=== PATIENT | female | born 1950 | race Caucasian/White ===

== ENCOUNTER 2016-12-21 13:02 | Emergency (ER) | payer OTHER ==
[2016-12-21 13:36] VITALS: BMI 31.9
--- NOTE | 2016-12-21 15:23 | PDOC ---
History of Present Illness - General Chief Complaint: Pain Stated Complaint: BACK PAIN Time Seen by Provider: 12/21/16 14:13 History Source: Patient Exam Limitations: No Limitations - History of Present Illness Initial Comments: This is a 66 yof with h/o chronic back pain, lumbar fusion (chronic residual mild RLE weakness), and hysterectomy who p/w sharp diffuse midline lumbar back pain radiating to both flanks for the past 2-3 days. The pain fluctuates and yesterday was up to 10/10 whenever she twisted her body or moved. She took Celebrex for this last night and this morning with significant relief. She has had pain like this before once which prompted an ED visit as well, but she cannot remember the cause of it. She additionally notes mild lower abdominal discomfort, but no other new symptoms. She struggles with some degree of urinary incontinence chronically and this has not changed recently. She denies fever, chills, nausea, vomiting, diarrhea, constipation, new numbness, tingling , new weakness, urinary retention or new incontinence, bowel incontinence, balance or walking difficulties, vision changes, speech or swallowing difficulties, or other symptoms. Past History - Past Medical History Allergies/Adverse Reactions: Allergies Allergy/AdvReac Type Severity Reaction Status Date / Time No Known Allergies Allergy Verified 12/21/16 13:36 Home Medications: Ambulatory Orders NK [No Known Home Medication] 12/21/16 HTN: Yes Hypercholesterolemia: Yes - Suicide/Smoking/Psychosocial Hx Smoking History: Never smoked Information on smoking cessation initiated: No Hx Alcohol Use: No Drug/Substance Use Hx: No Substance Use Type: None Review of Systems - Review of Systems Constitutional: No: Chills, Fever, Unexplained wgt Loss HEENTM: No: Nose Congestion, Throat Pain Respiratory: No: Cough, Shortness of Breath Cardiac (ROS): No: Chest Pain, Palpitations ABD/GI: Yes: Other (abdominal discomfort (chronic)). No: Constipated, Diarrhea , Nausea, Vomiting : Yes: Incontinence (mild chronic urinary incontinence). No: Burning, Dysuria Musculoskeletal: Yes: Back Pain ([id number]), Muscle Weakness (chronic right leg weakness). No: Neck Pain Integumentary: No: Bruising, Rash Neurological: No: Headache, Numbness, Paresthesia, Tingling, Weakness, Dizziness Endocrine: No: Unexplained Weight Gain, Unexplained Weight Loss *Physical Exam - Vital Signs Last Vital Signs Temp Pulse Resp BP Pulse Ox 97.8 F 68 18 151/87 96 12/21/16 13:29 12/21/16 13:29 12/21/16 13:29 12/21/16 13:12/21/16 13:29 - Physical Exam General Appearance: Yes: Nourished, Appropriately Dressed, Other (conversive, ) . No: Apparent Distress HEENT: positive: EOMI, Normal Voice, Hearing Grossly Normal. negative: Scleral Icterus (R), Scleral Icterus (L), Nasal Congestion Neck: positive: Trachea midline, Supple. negative: Tender, Rigid Respiratory/Chest: positive: Lungs Clear, Normal Breath Sounds. negative: Respiratory Distress, Crackles, Rhonchi, Stridor, Wheezing Cardiovascular: positive: Regular Rhythm, Regular Rate. negative: Murmur Gastrointestinal/Abdominal: positive: Normal Bowel Sounds, Soft. negative: Tender, Organomegaly, Pulsatile Mass, Guarding Musculoskeletal: positive: Normal Inspection. negative: Decreased Range of Motion, Vertebral Tenderness Extremity: positive: Normal Capillary Refill, Normal Inspection, Normal Range of Motion. negative: Tender, Cyanosis Integumentary: positive: Normal Color, Dry, Warm. negative: Erythema, Rash, Bruising Neurologic: positive: continuous improvement specialist II-XII NML intact, Fully Oriented, Alert, Normal Mood/ Affect, Normal Response, Motor Strength 5/5 ED Treatment Course - LABORATORY CBC & Chemistry Diagram: 12/21/16 15:30 12/21/16 15:30 Medical Decision Making - Medical Decision Making 66 yof with h/o chronic back pain p/w bilateral flank and spine pain in lower back. Exam with VS wnl, midline diffuse lumbar tenderness, minimal suprapubic tenderness. DDX includes UTI/pyelonephritis, vertebral fxr or disc herniation, renal stone, muscle strain/sprain. Unlikely cauda equina or cord compression, spinal stenosis, mass, or other more serious pathology. Patient has chronic unchanged right leg weakness and chronic mild urinary incontinence which sounds like stress incontinence. Ordered is Motrin, UA with cx, L-spine xray, and spiral CT. UA negative. Pt's pain improves with Motrin. *DC/Admit/Observation/Transfer Diagnosis at time of Disposition: Back pain Qualifiers: Back pain location: low back pain Chronicity: unspecified Back pain laterality : unspecified Sciatica presence: without sciatica Qualified Code(s): M54.5 - Low back pain - Discharge Dispostion Admit: No - Referrals Referrals: Buzz Rashid MD [Primary Care Provider] - Savannah Juan MD [Staff Physician] - Mark Dudley MD [Staff Physician] - - Patient Instructions Printed Discharge Instructions: DI for Low Back Pain Additional Instructions: You were seen in the ER today for back pain and flank pain. We did urine tests which were normal. We also took an x-ray of your lumbar spine and this did not show any concerning findings that could have caused your pain. We also did a CT scan of your abdomen and did not see any concerning findings that may have caused your symptoms. Please follow up with your primary doctor for continued workup, especially if your back pain persists. Please also follow up with your senior security architect or urologist regarding your incontinence and chronic discomfort in your pelvis. Please continue to take your normal Celebrex or which ever OTC pain medication you prefer for your pain. Return to the ED with any new or worsening symptoms such as new numbness, tingling, weakness, worsened pain or loss of continence, fever, or other symptoms. Print Language: LITHUANIAN
[2016-12-21 15:37] LABS: BASOPHIL 1.2 % (0-2.0); EOSINOPHIL 3.1 % (0-4.5); MCH 31.1 pg (25.7-33.7); MCHC 32.9 g/dl (32.0-36.0); MEAN CELL VOLUME 94.4 fl (80-96); MEAN PLT VOLUME 10.1 fl (7.5-11.1); PLATELET COUNT 232 K/MM3 (134-434); RDW 13.5 % (11.6-15.6); URINE APPEARANCE SL CLOUDY; URINE BILIRUBIN NEGATIVE (NEGATIVE); URINE BLOOD TRACE-LYSE (NEGATIVE); URINE COLOR LT. YELLOW; URINE GLUCOSE (UA) NEGATIVE (NEGATIVE); URINE KETONE NEGATIVE (NEGATIVE); URINE NITRITE NEGATIVE (NEGATIVE); URINE PROTEIN NEGATIVE (NEGATIVE); URINE UROBILINOGEN 0.2 mg/dL (0.2-1.0); WHITE BLOOD COUNT 7.1 K/mm3 (4.0-10.0)
[2016-12-21 15:39] LABS: URINE LEUK ESTERASE 3+ (NEGATIVE)
[2016-12-21] MEDS ORDERED: IBUPROFEN 600 MG TABLET (FP) PO ONE ×2 (15:42→16:01)
[2016-12-21 15:46] LABS: URINE BACTERIA FEW /hpf (NONE SEEN); URINE MUCUS RARE; URINE RBC 2 /hpf (0-3); URINE WBC 175 /hpf (3-5)
[2016-12-21 16:03] LABS: ALK PHOS 71 U/L (45-117); ANION GAP 7 (8-16); BILIRUBIN,TOTAL 0.7 mg/dL (0.2-1.0); CO2 29 mmol/L (21-32); CREATININE 0.6 mg/dL (0.55-1.02); GLUCOSE,RANDOM 80 mg/dL (74-106); SGOT/AST 11 U/L (15-37); SGPT/ALT 22 U/L (12-78); TOT PROT 6.8 g/dl (6.4-8.2)
--- NOTE | 2016-12-21 17:02 | PDOC ---
Attending Attestation - Resident Resident Name: Lindsay - ED Attending Attestation I have performed the following: I have examined & evaluated the patient, The case was reviewed & discussed with the resident, I agree w/resident's findings & plan, Exceptions are as noted - HPI HPI: 12/21/16 16:57 66 yo F with h/o prior spinal fusion 1995, prior hysterectomy and subsequent prolapse , here today c/o bilat lower abd pain. describe pulling sensation. has had for over one month. also now having low back pain. radiates around to front. no dysuria. although does have urgency and prolapse, with occasional incontinence which she has had for 6 months. was referred to Dr Molina ( ug designer) but was unable to get an appointment before her recent travels to [facility] for one month. no f/c no n/v . no weight loss. no other complaints. has some chronic right leg weakness following her spinal fusion in but no worse or new weakness. - Physicial Exam PE: 12/21/16 16:59 awake alert lungs clear. heart rrr no mrg. abd soft mild bilat lower quad ttp, bladder ttp. no cva tenderness. no mildline spinal tenderess. parapspinal spasm. 5/5 bilat lower ext, mild weaknes hip flex right compared to left ( old) sensation intact to light tough throughout. n/v intact. - Medical Decision Making 12/21/16 17:00 differential: renal colic, uti pyelo, msk strain sprain, bony lesion. plan xray spin lumbar, eval hardward, ua labs ct a/p without. pt will likley require outpt followup with Dr Prasad ( ug designer) and her pcp Dr Leyva, and spinal surgery. treat with nsaids for pain control.
[2016-12-21 18:23] VITALS: BP 140/80; PULSE 87; TEMP 98.2
--- NOTE | 2016-12-21 18:23 | PDOC ---
*Physical Exam - Vital Signs Last Vital Signs Temp Pulse Resp BP Pulse Ox 97.8 F 68 18 151/87 96 12/21/16 13:29 12/21/16 13:29 12/21/16 13:29 12/21/16 13:29 12/21/16 13:29 - Physical Exam Comments: 12/21/16 18:21 abd: soft, nt/nd ED Treatment Course - LABORATORY CBC & Chemistry Diagram: 12/21/16 15:30 12/21/16 15:30 - ADDITIONAL ORDERS Additional order review: Laboratory Results 12/21/16 12/21/16 15:30 15:30 Sodium 138 Potassium 4.7 Chloride 102 Carbon Dioxide 29 Anion Gap 7 L BUN 11 D Creatinine 0.6 Creat Clearance w eGFR > 60 Random Glucose 80 Calcium 9.0 Total Bilirubin 0.7 AST 11 L D ALT 22 Alkaline Phosphatase 71 Total Protein 6.8 Albumin 4.0 Urine Color Lt. yellow Urine Appearance Sl cloudy Urine pH 6.0 Urine Protein Negative Urine Glucose (UA) Negative Urine Ketones Negative Urine Blood Trace-lyse Urine Nitrite Negative Urine Bilirubin Negative Urine Urobilinogen 0.2 Urine RBC 2 Urine WBC 175 Ur Epithelial Cells Rare Urine Bacteria Few Urine Mucus Rare 12/21/16 15:30 RBC 4.35 MCV 94.4 MCHC 32.9 RDW 13.5 MPV 10.1 D Neutrophils % 48.0 Lymphocytes % 36.7 Monocytes % 11.0 H Eosinophils % 3.1 Basophils % 1.2 - Medications Given in the ED: ED Medications Discontinued Medications Generic Name Dose Route Start Last Admin Trade Name Freq PRN Reason Stop Dose Admin Ibuprofen 600 mg 12/21/16 15:42 12/21/16 15:58 Motrin - PO 12/21/16 15:43 600 mg ONCE ONE Administration Medical Decision Making - Medical Decision Making 12/21/16 18:22 ct reviewed with the patient. lab work reviewed with the patient. Pt stable for d/c to home. States she needs both ortho and international bank manager recommendations. Will call [facility] for follow up. *DC/Admit/Observation/Transfer Diagnosis at time of Disposition: Back pain Qualifiers: Back pain location: low back pain Chronicity: unspecified Back pain laterality : unspecified Sciatica presence: without sciatica Qualified Code(s): M54.5 - Low back pain - Referrals Referrals: Buzz Rashid MD [Primary Care Provider] - - Patient Instructions Printed Discharge Instructions: DI for Low Back Pain Additional Instructions: You were seen in the ER today for back pain and flank pain. We did urine tests which were normal. We also took an x-ray of your lumbar spine and this did not show any concerning findings that could have caused your pain. We also did a CT scan of your abdomen and did not see any concerning findings that may have caused your symptoms. Please follow up with your primary doctor for continued workup, especially if your back pain persists. Please also follow up with your agricultural chemicals inspector or urologist regarding your incontinence and chronic discomfort in your pelvis. Please continue to take your normal Celebrex or which ever OTC pain medication you prefer for your pain. Return to the ED with any new or worsening symptoms such as new numbness, tingling, weakness, worsened pain or loss of continence, fever, or other symptoms. Print Language: SOUTH SUDANESE - Post Discharge Activity
== END 2016-12-21 18:39 | disposition home or self-care (01) ==
LOC: JER 13:02
DX: M54.5 Low back pain (principal); G89.29 Other chronic pain; I10 Essential (primary) hypertension; E78.00 Pure hypercholesterolemia, unspecified
CPT/HCPCS: 36415; 72100-TC; 74176; 80053; 81003; 81015; 85025; 87086; 87186; 99283-25

== ENCOUNTER 2019-12-26 11:29 | Emergency (ER) | payer OTHER ==
[2019-12-26 11:45] VITALS: BP 153/95; PULSE 70; TEMP 98.2; BMI 34.0
--- OUTSIDE RECORDS SUMMARY | 2019-12-26 11:56 | XMS ---
:1950 Author Organization [facility] Support Name Relationship Address Phone UE, UNEMPLOYED Unavailable Unavailable Unavailable UE Unavailable Unavailable Unavailable MISTY ALLEN [address] [place] [address] Re-disclosure Warning The records that you are about to access may contain information from federally- assisted alcohol or drug abuse programs. If such information is present, then the following federally mandated warning applies: This information has been disclosed to you from records protected by federal confidentiality rules (42 CFR part 2). The federal rules prohibit you from making any further disclosure of this information unless further disclosure is expressly permitted by the written consent of the person to whom it pertains or as otherwise permitted by 42 CFR part 2. A general authorization for the release of medical or other information is NOT sufficient for this purpose. The Federal rules restrict any use of the information to criminally investigate or prosecute any alcohol or drug abuse patient.The records that you are about to access may contain highly sensitive health information, the redisclosure of which is protected by Article 27-F of the [facility] Public Health law. If you continue you may haveaccess to information: Regarding HIV / AIDS; Provided by facilities licensed or operated by the [facility] Office of Mental Health; or Provided by the [facility] Office for People With Developmental Disabilities. If such information is present, then the following [facility] mandated warning applies: This information has been disclosed to you from confidential records which are protected by state law. State law prohibits you from making any further disclosure of this information without the specific written consent of the person to whom it pertains, or as otherwise permitted by law. Any unauthorized further disclosure in violation of state law may result in a fine or assisted sentence or both. A general authorization for the release of medical or other information is NOT sufficient authorization for further disclosure. Insurance Providers Payer name Policy type Policy ID Covered Covered libertarian's Policy P flora / Coverage libertarian ID relationship to Fay Inf ormation type fay [employer] MEDICARE [id number] SP [id number] ANOKA [id number] HEALTHCARE (MEDICARE) Results ID Date Data Source [id number] 11/11/2019 01:40:00 PM EDT [facility] Name Value Range Interpretation Description Data Sup porting Code Source(s) Document(s ) 2019 Novel [facility] Coronavirus RNA Interpretation Unspecified Specimen Qualitative KESHAWN Probe Detection This lab was ordered by [facility] and reported by [facility]. ID Date Data Source [id number] 11/11/2019 09:29:00 AM EDT [facility] Name Value Range Interpretation Description Data Sup porting Code Source(s) Document(s ) SARS [facility] Coronavirus 2 RNA Presence Respiratory Specimen KESHAWN Probe Detection This lab was ordered by [facility] and rep orted by [facility]. ID Date Data Source [id number] 10/07/2019 04:18:00 AM EDT [facility] Name Value Range Interpretation Code Description Data Jana rce(s) Supporting Document(s ) SARS-CoV-2 [facility] BY PCR This lab was ordered by [facility] and reported by [facility]. Procedure
--- NOTE | 2019-12-26 12:05 | PDOC ---
History of Present Illness <Michaelle Tapia - Last Filed: 12/26/19 19:07> - History of Present Illness Initial Comments: 12/26/19 12:27 69F with PMH of HTN, chronic back pain, and lumbar fusion presents to the ED after a mechanical fall on her stairs morning, she was worried about a fracture and wanted reassurance. She reports "missing a step" and fell on to her back and hit her head, and unsure of LOC. She was able to ambulate afterwards. She reports some nausea w/o vomiting. Denies lightheadedness/dizziness, headache, vision changes, numbness, tingling, weakness, urinary retention/incontinence. PMH: as in HPI SH: hysterectomy, lumbar fusion Allergies: NKDA Tob/Etoh/Rec drugs: neg x3 ROS GENERAL/CONSTITUTIONAL: No fever or chills. No weakness. HEENT: No change in vision. No ear pain or discharge. CARDIOVASCULAR: No chest pain or shortness of breath RESPIRATORY: No cough, wheezing, or hemoptysis. GASTROINTESTINAL: No nausea, vomiting, diarrhea or constipation. GENITOURINARY: No dysuria, frequency, or change in urination. MUSCULOSKELETAL: No joint or muscle swelling or pain. No neck or back pain. SKIN: No rash NEUROLOGIC: No headache, vertigo, or change in strength/sensation. ENDOCRINE: No increased thirst. No abnormal weight change HEMATOLOGIC/LYMPHATIC: No anemia, easy bleeding, or history of blood clots. ALLERGIC/IMMUNOLOGIC: No hives or skin allergy. PE GENERAL: Awake, alert, and fully oriented; no acute distress HEAD: No signs of trauma, normocephalic, atraumatic EYES: PERRLA, EOMI, sclera anicteric, conjunctiva clear ENT: Auricles normal inspection, hearing grossly normal, nares patent, moist mucosa, oropharynx clear without exudates. NECK: Normal ROM, supple, no LAD, JVD, or masses HEART: Regular rate and rhythm, normal S1/S2, no murmurs, rubs or gallops, peripheral pulses normal and equal bilaterally. LUNGS: No distress, speaks full sentences, clear to auscultation bilaterally ABDOMEN: Soft, nontender. No guarding, no rebound. No masses MSK: mild lumbar tenderness to palpation, mild tenderness at left greater tro chanter and mid left buttock, no tenderness or swelling at any other joint NEUROLOGICAL: CNII-XII grossly intact. Normal speech, no focal sensorimotor deficits SKIN: Warm, Dry, normal turgor, no rashes or lesions noted Assessment and Plan 1. eval for intracranial pathology, c-spine, l-spine and hip fracture Isidro Arthur, PGY1 Emergency Medicine <Isidro Arthur - Last Filed: 12/26/19 20:08> - General Chief Complaint: Nausea Stated Complaint: BACK PAIN Past History <Michaelle Tapia - Last Filed: 12/26/19 19:07> - Medical History COPD: No HTN: Yes Hypercholesterolemia: Yes - Psycho-Social/Smoking History Smoking History: Never smoked - Substance Abuse Hx (Audit-C & DAST Scrn) How often the patient has a drink containing alcohol: Never Score: In Men: 4 or > Positive; In Women: 3 or > Positive: 0 Screen Result (Pos requires Nsg. Audit-10AR): Negative In the last yr the pt used illegal drug/Rx for NonMed reason: No Score: Yes response is considered Positive: 0 Screen Result (Positive result requires Nsg. DAST-10): Negative <Isidro Arthur - Last Filed: 12/26/19 20:08> - Medical History Allergies/Adverse Reactions: Allergies Allergy/AdvReac Type Severity Reaction Status Date / Time No Known Allergies Allergy Verified 12/26/19 11:37 Home Medications: Ambulatory Orders Cephalexin [Keflex] 500 mg PO BID #14 capsule 12/25/16 *Physical Exam - Vital Signs Last Vital Signs Temp Pulse Resp BP Pulse Ox 98.2 F 70 16 153/95 100 12/26/19 11:37 12/26/19 11:37 12/26/19 11:37 12/26/19 11:37 12/26/19 11:37 <Michaelle aTpia - Last Filed: 12/26/19 19:07> - Vital Signs Last Vital Signs Temp Pulse Resp BP Pulse Ox 98.2 F 70 16 153/95 100 12/26/19 11:37 12/26/19 11:37 12/26/19 11:37 12/26/19 11:37 12/26/19 11:37 <Isidro Arthur - Last Filed: 12/26/19 20:08> Medical Decision Making - Medical Decision Making 12/26/19 12:51 69F with chronic back pain presents to ED after mechanical fall on . Physical exam was unimpressive. Will get head/c-spine CT, L-spine, and left hip/pelvis to eval for fracture. Pt took 2 advil today, will defer analgesics for now. 12/26/19 14:34 Head and c-spine CT are negative. Hip/pelvis xray negative. Lumbar spine xray - radiologist noted L1 compression, but did not specify if it appeared to be acute compression or chronic degenerative compression -> lumbar CT to further evaluate -> acute L1 compression fracture noted on lumbar CT scan Pt's pain well controlled, stable for d/c and advised to follow up with PCP and spine surgeon. <Isidro Arthur - Last Filed: 12/26/19 20:08> Discharge - Discharge Information Problems reviewed: Yes - Admission No <Michaelle Tapia - Last Filed: 12/26/19 19:07> - Admission No <Isidro Arthur - Last Filed: 12/26/19 20:08> - Discharge Information Clinical Impression/Diagnosis: Back pain Qualifiers: Back pain location: low back pain Chronicity: chronic Back pain laterality: bilateral Sciatica presence: unspecified whether sciatica present Qualified Code(s): M54.5 - Low back pain Lumbar vertebral fracture Qualifiers: Encounter type: initial encounter Lumbar vertebra fracture level: L1 Fracture type: closed Fracture morphology: wedge compression Qualified Code(s): S32.010A - Wedge compression fracture of first lumbar vertebra, initial encounter for closed fracture Condition: Stable Disposition: HOME - Follow up/Referral Referrals: Luis Armando Zepeda MD [Staff Physician] - German Veloz MD [Staff Physician] - Jose Espinoza DO [Staff Physician] - - Patient Discharge Instructions Additional Instructions: Discharge Instructions: You were seen in the emergency department for back pain after a fall. Your CT scan of your lower back (lumbar spine) showed a compression fracture. This is safe to go home with, but you will need to follow up with orthopedic surgery. Home Care and Follow Up: - You may use over the counter medications as needed for pain at home. 650- 1000mg acetaminophen (Tylenol) or 600mg ibuprofen (Motrin or Advil) can be used every 6-8 hours. If needed for continued pain, these medications may be alternated every 3-4 hours. For example, if you take ibuprofen at 9am, you may take acetaminophen at noon, ibuprofen at 3pm, etc. - It is strongly recommended that you take ibuprofen with food to help prevent stomach irritation. If you are taking it for more than a day or two, you may consider taking an acid medication such as Pepcid, available over the counter, to protect your stomach. This should be taken first thing in the morning 30-60 minutes before any food or medications. - You may buy a numbing patch that contains lidocaine (the patch is 4% lidocaine) that can be placed over the areas of greatest pain. The lidocaine patch may be placed for 12 hours then removed for 12 hours. - Try using an ice pack for 20 minutes every hour or a heating pad for additional pain control. These should NOT be used over the lidocaine patch, but you may place them over the areas of pain while the patch is off. - Do not stop moving around, but avoid activities that cause pain in your back. - You will need to follow up with an orthopedic surgeon within the next 7 days. You have been given contact information for several orthopedic surgeons (Dr Veloz, Dr Zepeda, and Dr Espinoza). There is more than one doctor available at each number, so you should be able to get an appointment within the next week. - Seek immediate medical care if you have significant worsening of your symptoms, weakness in your legs, urinary or stool incontinence, difficulty walking, numbness in your buttocks, any additional falls, pain that is not controlled with medication, or any other medical emergency. - Post Discharge Activity
--- NOTE | 2019-12-26 13:57 | PDOC ---
Documentation entered by Cesar Graves SCRIBE, acting as scribe for German Chacon MD. German Chacon MD: This documentation has been prepared by the Star stahl Aaron, SCRIBE, under my direction and personally reviewed by me in its entirety. I confirm that the documentation accurately reflects all work, treatment, procedures, and medical decision making performed by me. Attending Attestation - Resident Resident Name: Isidro Arthur - ED Attending Attestation I have performed the following: I have examined & evaluated the patient, The case was reviewed & discussed with the resident, I agree w/resident's findings & plan, Exceptions are as noted - HPI HPI: 12/26/19 12:38 The patient is a 69 year old female with a significant PMH of chronic back pain, HTN, HLD, who presents to the emergency department s/p fall 2 days ago. Patient reports that she slipped down the stairs, hitting her back and the back of her head. Denies LOC. Was able to get up afterwards and has been walking around without issue since then. However, pt reports pain in her lower back and head. Patient took tylenol for pain and endorses nausea without vomiting and states her head feels funny. Patient denies lightheadedness, dizziness, vision changes, headache, numbness, or tingling. Allergies: NKDA Past surgical history: Lumbar fusion, hysterectomy Social Hx: non-smoker PCP: Buzz Rashid - Physicial Exam PE: 12/26/19 14:00 See resident exam - Medical Decision Making 12/26/19 14:00 69 F with mechanical fall 2 days ago, now with head and lower back pain. - CT head/c-spine - XR L spine CT L spine shows compression fx Pt with no neuro deficits, pain well controlled will DC with outpt spine f/u Pt is well appearing, with normal vitals. Clinically stable for DC at this time. I discussed the physical exam findings, ancillary test results and final diagnoses with the patient. I answered all of the patient's questions. The patient was satisfied with the care received and felt comfortable with the discharge plan and treatment plan. The patient agrees to follow up with the primary care physician within 24-72 hours. Discharge - Discharge Information Problems reviewed: Yes Clinical Impression/Diagnosis: Fall Back pain Qualifiers: Back pain location: low back pain Chronicity: chronic Back pain laterality: bilateral Sciatica presence: unspecified whether sciatica present Qualified Code(s): M54.5 - Low back pain Lumbar vertebral fracture Qualifiers: Encounter type: initial encounter Lumbar vertebra fracture level: L1 Fracture type: closed Fracture morphology: wedge compression Qualified Code(s): S32.010A - Wedge compression fracture of first lumbar vertebra, initial encounter for closed fracture Condition: Stable Disposition: HOME - Follow up/Referral Referrals: German Veloz MD [Staff Physician] - Luis Armando Zepeda MD [Staff Physician] - Jose Espinoza DO [Staff Physician] - - Patient Discharge Instructions Additional Instructions: Discharge Instructions: You were seen in the emergency department for back pain after a fall. Your CT scan of your lower back (lumbar spine) showed a compression fracture. This is safe to go home with, but you will need to follow up with orthopedic surgery. Home Care and Follow Up: - You may use over the counter medications as needed for pain at home. 650- 1000mg acetaminophen (Tylenol) or 600mg ibuprofen (Motrin or Advil) can be used every 6-8 hours. If needed for continued pain, these medications may be alternated every 3-4 hours. For example, if you take ibuprofen at 9am, you may take acetaminophen at noon, ibuprofen at 3pm, etc. - It is strongly recommended that you take ibuprofen with food to help prevent stomach irritation. If you are taking it for more than a day or two, you may consider taking an acid medication such as Pepcid, available over the counter, to protect your stomach. This should be taken first thing in the morning 30-60 minutes before any food or medications. - You may buy a numbing patch that contains lidocaine (the patch is 4% lidocaine) that can be placed over the areas of greatest pain. The lidocaine patch may be placed for 12 hours then removed for 12 hours. - Try using an ice pack for 20 minutes every hour or a heating pad for add itional pain control. These should NOT be used over the lidocaine patch, but you may place them over the areas of pain while the patch is off. - Do not stop moving around, but avoid activities that cause pain in your back. - You will need to follow up with an orthopedic surgeon within the next 7 days. You have been given contact information for several orthopedic surgeons (Dr Veloz, Dr Zepeda, and Dr Espinoza). There is more than one doctor available at each number, so you should be able to get an appointment within the next week. - Seek immediate medical care if you have significant worsening of your symptoms, weakness in your legs, urinary or stool incontinence, difficulty walking, numbness in your buttocks, any additional falls, pain that is not controlled with medication, or any other medical emergency. - Post Discharge Activity
[2019-12-26] MEDS ORDERED: LIDOCAINE 5% TOPICAL PATCH ONE (19:19)
[2019-12-26] MEDS ORDERED: LIDOCAINE 5% TOPICAL PATCH TP ONE (19:20)
[2019-12-26] MEDS ORDERED: LIDOCAINE PATCH REMOVAL MC SCH (22:00)
== END 2019-12-26 19:26 | disposition home or self-care (01) ==
LOC: JER 11:29
DX: M54.5 Low back pain (principal); S32.010A Wedge compression fracture of first lumbar vertebra, initial encounter for closed fracture
CPT/HCPCS: 70450-TC; 72100-TC-FY; 72125-TC; 72131-TC; 73523-TC-FY; 99285-25

== ENCOUNTER 2021-06-21 13:24 | Emergency (ER) | payer OTHER ==
[2021-06-21 13:41] VITALS: BP 132/68; PULSE 70; TEMP 97.8; BMI 32.5
[2021-06-21] MEDS ORDERED: KETOROLAC TROMETHAMINE 30 MG/1 ML VIAL IM ONE (15:02)
[2021-06-21] MEDS ORDERED: KETOROLAC TROMETHAMINE 30 MG/1 ML VIAL ONE (15:03)
== END 2021-06-21 16:01 | disposition home or self-care (01) ==
LOC: JERFT 13:24
PROC: 3E023GC Introduction of Other Therapeutic Substance into Muscle, Percutaneous Approach (ICD-10-PCS; principal; 2021-06-21)
DX: M25.562 Pain in left knee (principal)
CPT/HCPCS: 99284-25

== ENCOUNTER 2022-05-28 10:50 | Emergency (ER) | payer OTHER ==
[2022-05-28 11:46] VITALS: RESP 20; BMI 32.5
[2022-05-28] MEDS ORDERED: SODIUM CHLORIDE 0.9% 500 ML INFUS.BAG IV ONE (12:40)
[2022-05-28] MEDS ORDERED: ACETAMINOPHEN 1000 MG/100 ML BAG IVPB ONE (12:40)
[2022-05-28] MEDS ORDERED: guaiFENesin/D-M SUGAR-FREE/ACLHOL-FREE (200 MG/10 MG) 5 ML PO ONE (12:41)
[2022-05-28] MEDS ORDERED: ACETAMINOPHEN INJECTION 100 ML IVPB ONE (12:47)
[2022-05-28] MEDS ORDERED: ALBUTEROL SO4 0.083% IH SOL 2.5 MG/3 ML VIAL.NEB. NEB ONE ×2 (13:05→13:14)
[2022-05-28] MEDS ORDERED: guaiFENesin/CODEINE 10 ML UNIT-DOSE CUPS PO ONE (13:22)
[2022-05-28 13:26] LABS: BASO % 0.2 % (0-2.0); EOS % 0.1 % (0-4.5); HEMATOCRIT 36.4 % (32.4-45.2); HEMOGLOBIN 12.6 GM/dL (10.7-15.3); LYMPH % 10.1 % (8-40); MCH 31.7 pg (25.7-33.7); MCHC 34.5 g/dl (32.0-36.0); MEAN PLT VOLUME 8.9 fl (7.5-11.1); NEUT % 77.6 % (42.8-82.8); PLATELET COUNT 360 10^3/uL (134-434); RBC 3.96 M/mm3 (3.60-5.2)
[2022-05-28 13:30] LABS: INR 1.3 (0.83-1.09)
[2022-05-28 13:32] LABS: ACTIVATED PTT 29.8 SECONDS (25.2-36.5)
[2022-05-28] MEDS ORDERED: guaiFENesin/CODEINE 10 ML UNIT-DOSE CUPS ONE (13:45)
[2022-05-28 13:53] LABS: ALBUMIN 3.4 g/dl (3.4-5.0); CALCIUM 8.9 mg/dL (8.5-10.1)
[2022-05-28 13:54] LABS: BLOOD UREA NITROGEN 9.4 mg/dL (7-18); MAGNESIUM 2.2 mg/dL (1.8-2.4)
[2022-05-28 13:57] LABS: CREATININE 0.8 mg/dL (0.55-1.3)
[2022-05-28 13:58] LABS: BILIRUBIN,TOTAL 0.9 mg/dL (0.2-1); TOT PROT 7.2 g/dl (6.4-8.2)
[2022-05-28 14:38] LABS: EPI CELLS 13 /uL (0-25.1); HYALINE CASTS 13 /uL (0-3.1); PH,URINE 5.5 (5.0-8.0); URINE APPEARANCE CLOUDY; URINE BACTERIA >9,000 /uL (0-1359); URINE BILIRUBIN 1+ (NEGATIVE); URINE COLOR DK YELLOW; URINE GLUCOSE (UA) NEGATIVE (NEGATIVE); URINE KETONE TRACE (NEGATIVE); URINE LEUK ESTERASE 1+ (NEGATIVE); URINE NITRITE POSITIVE (NEGATIVE); URINE PROTEIN 2+ (NEGATIVE); URINE UROBILINOGEN 4.0 E.U/dl mg/dL (0.2-1.0); URINE WBC 869 /uL (0-25.8)
[2022-05-28] MEDS ORDERED: CEFTRIAXONE 1 GM in DEXTROSE 5%-WATER - 100 ML IVPB ONE (14:47)
[2022-05-28] MEDS ORDERED: CEFTRIAXONE 1 GM/50 ML BAG ONE (15:06)
[2022-05-28 15:19] VITALS: BP 120/75; PULSE 84; TEMP 98.2
[2022-05-28 15:23] LABS: URINE RBC 27 /uL (0-23.9)
== END 2022-05-28 17:09 | disposition home or self-care (01) ==
LOC: JERFT 10:50 → JER 10:50
PROC: 3E0333Z Introduction of Anti-inflammatory into Peripheral Vein, Percutaneous Approach (ICD-10-PCS; principal; 2022-05-28)
PROC: 3E03329 Introduction of Other Anti-infective into Peripheral Vein, Percutaneous Approach (ICD-10-PCS; 2022-05-28)
PROC: 3E0F7GC Introduction of Other Therapeutic Substance into Respiratory Tract, Via Natural or Artificial Opening (ICD-10-PCS; 2022-05-28)
DX: R05.1 Acute cough (principal); R50.9 Fever, unspecified
CPT/HCPCS: 0241U-QW; 36415; 71275-TC; 80053; 81003; 83735; 85025; 85379; 85610; 85730; 87040; 87086; 87186; 93005; 93010; 94640; 96374; 96375; 99285-25; Q9967

== ENCOUNTER 2022-08-20 09:15 | Emergency (ER) | payer OTHER ==
[2022-08-20 09:26] VITALS: TEMP 97.5; BMI 29.9
[2022-08-20] MEDS ORDERED: ALBUTEROL SO4 0.083% IH SOL 2.5 MG/3 ML VIAL.NEB. NEB ONE ×2 (09:53→09:55)
[2022-08-20] MEDS ORDERED: ALBUTEROL SO4 2.5/IPRATROPIUM 0.5 INH SOL 3 ML VIAL.NEB. NEB ONE ×2 (11:42→11:58)
[2022-08-20] MEDS ORDERED: DEXAMETHASONE SOD PHOSPHATE 10 MG/1 ML VIAL IM ONE (11:42)
[2022-08-20] MEDS ORDERED: DEXAMETHASONE SOD PHOSPHATE 10 MG/1 ML VIAL ONE (11:58)
[2022-08-20 12:48] VITALS: BP 145/82; PULSE 82; RESP 20
== END 2022-08-20 12:48 | disposition home or self-care (01) ==
LOC: JER 09:15
PROC: 3E0F7GC Introduction of Other Therapeutic Substance into Respiratory Tract, Via Natural or Artificial Opening (ICD-10-PCS; principal; 2022-08-20)
PROC: 3E0F7GC Introduction of Other Therapeutic Substance into Respiratory Tract, Via Natural or Artificial Opening (ICD-10-PCS; 2022-08-20)
PROC: 3E023GC Introduction of Other Therapeutic Substance into Muscle, Percutaneous Approach (ICD-10-PCS; 2022-08-20)
DX: R05.2 Subacute cough (principal)
CPT/HCPCS: 71046-TC-FY; 94640; 96372; 99284-25; J1100

== ENCOUNTER 2024-01-16 04:30 | Day surgery (SDC) | payer OTHER ==
[2024-01-14 18:51] VITALS: BMI 29.9
[2024-01-16] MEDS ORDERED: ACETAMINOPHEN 500 MG TABLET (FP) PO PRN (08:51)
[2024-01-16 12:35] VITALS: RESP 18
[2024-01-16] MEDS ORDERED: DEXAMETHASONE SOD PHOSPHATE 10 MG/1 ML VIAL ONE (14:30)
[2024-01-16] MEDS ORDERED: LIDOCAINE HCL/PF 1% SDV 5ML VIAL ONE ×2 (14:38→14:40)
[2024-01-16 15:54] VITALS: BP 130/70; PULSE 60; TEMP 97.2
== END 2024-01-16 15:50 | disposition home or self-care (01) ==
LOC: JASU-SURG 04:30
PROVIDERS: ATTEND Pain Medicine Pain Medicine
PROC: 3E0R3BZ Introduction of Anesthetic Agent into Spinal Canal, Percutaneous Approach (ICD-10-PCS; 2024-01-16)
PROC: 3E0R33Z Introduction of Anti-inflammatory into Spinal Canal, Percutaneous Approach (ICD-10-PCS; principal; 2024-01-16 14:43)
DX: M54.16 Radiculopathy, lumbar region (principal)
CPT/HCPCS: 76000-TC-FY; J1100